=== PATIENT | male | born 1955 | race Caucasian/White ===

== ENCOUNTER 2025-01-20 07:46 | Outpatient (CLI) | payer MEDICARE | END 2025-01-20 07:47 | disposition home or self-care (01) | LOC: NM 07:46 | PROVIDERS: ATTEND Specialist | DX: E21.3 Hyperparathyroidism, unspecified (principal) | CPT/HCPCS: 78072; A9500 ==

== ENCOUNTER 2025-02-02 11:16 | Outpatient (CLI) | payer MEDICARE ==
[2025-02-02 13:01] LABS: #Basophils 0.03 10x3/uL (0.0-0.2); #Eosinophils 0.07 10x3/uL (0.0-0.7); #Monocytes 0.46 10x3/uL (0.11-0.59); #Neutrophils 4.40 10x3/uL (1.40-6.50); %Basophils 0.5 % (0.0-1.0); %Eosinophils 1.1 % (0.0-10.0); %Lymphocytes 19.5 % (21.0-51.0); %Monocytes 7.4 % (0.0-10.0); %Neutrophils 71.2 % (42.0-75.0); Hematocrit 48.1 % (42.0-52.0); Hemoglobin 15.9 g/dL (14.0-18.0); Mean Corpuscular Hemoglobin 29.7 pg (27.0-31.0); Mean Corpuscular Volume 89.7 fL (78.0-98.0); Platelet Count 205 10x3/uL (130-400); Red Blood Cell (RBC) Count 5.36 mill/uL (4.70-6.10); White Blood Cell (WBC) Count 6.19 10x3/uL (4.8-10.8)
[2025-02-02 13:07] LABS: Bacteria/HPF None Seen HPF (None Seen); Glucose, Urine (Dipstick) Normal (Negative); Leukocyte 25 Leu/uL (Negative); Protein, Urine (Dipstick) Negative (Neg-Trace); RBC/HPF None Seen HPF (0-3); Specific Gravity, Urine 1.019 (1.002-1.036); WBC/HPF None Seen HPF (0-3)
[2025-02-02 13:17] LABS: INR-International Normal Ratio 1.0; Prothrombin Time 13.2 sec (12.0-14.7)
[2025-02-02 13:18] LABS: PTT 32.4 sec (22.9-36.1)
[2025-02-02 13:22] LABS: Anion Gap 12 mmol/L (10-20); BUN (Urea Nitrogen) 7 mg/dL (8.4-25.7); Calc. Creatinine Clearance 0 mL/min (70-130); Calcium 10.5 mg/dL (7.8-10.44); Carbon Dioxide 27 mmol/L (23-31); Chloride 106 mmol/L (98-107); Glucose 90 mg/dL (80-115); Potassium 4.0 mmol/L (3.5-5.1); Sodium 141 mmol/L (136-145)
== END 2025-02-02 11:17 | disposition home or self-care (01) ==
LOC: LABBT 11:16
PROVIDERS: ATTEND Urology
DX: Z01.818 Encounter for other preprocedural examination (principal); R97.20 Elevated prostate specific antigen [PSA]
CPT/HCPCS: 71046; 80048; 81001; 84153; 85025; 85610; 85730; 87077; 87086; 87186; 93005; 93010